=== PATIENT | female | born 1995 | race American Indian/Alaskan Native ===

== ENCOUNTER 2022-07-17 12:29 | Emergency (ER) | payer MEDICAID | END 2022-07-17 13:45 | disposition left against medical advice (07) | LOC: FB.ED 12:29 | DX: O9A.213 Injury, poisoning and certain other consequences of external causes complicating pregnancy, third trimester (principal); S39.91XA Unspecified injury of abdomen, initial encounter; R55 Syncope and collapse; R07.9 Chest pain, unspecified; Z3A.32 32 weeks gestation of pregnancy; Z88.0 Allergy status to penicillin; Z79.899 Other long term (current) drug therapy; W18.39XA Other fall on same level, initial encounter | CPT/HCPCS: 99284 ==

== ENCOUNTER 2023-05-08 14:39 | Emergency (ER) | payer MEDICAID | END 2023-05-08 15:14 | LOC: FB.ED 14:39 | DX: O99.891 Other specified diseases and conditions complicating pregnancy (principal); R10.2 Pelvic and perineal pain; Z88.0 Allergy status to penicillin; Z3A.08 8 weeks gestation of pregnancy | CPT/HCPCS: 99284 ==

== ENCOUNTER 2024-07-17 17:38 | Emergency (ER) | payer MEDICAID | END 2024-07-17 18:35 | disposition home or self-care (01) | LOC: FB.ED 17:38 | DX: B08.4 Enteroviral vesicular stomatitis with exanthem (principal); Z88.0 Allergy status to penicillin | CPT/HCPCS: 99283 ==

== ENCOUNTER 2025-06-10 18:36 | Emergency (ER) | payer MEDICAID | END 2025-06-10 20:05 | disposition home or self-care (01) | LOC: FB.ED 18:36 | DX: H10.9 Unspecified conjunctivitis (principal); F17.200 Nicotine dependence, unspecified, uncomplicated; Z88.0 Allergy status to penicillin; Z79.899 Other long term (current) drug therapy | CPT/HCPCS: 99284 ==